=== PATIENT | female | born 1985 | race Caucasian/White ===

== ENCOUNTER 2020-05-18 21:32 | Emergency (ER) | payer BC ==
[~2020-05-18] VITALS: Ht 175 cm; Wt 136.0 kg
[~2020-05-18 21:32] MED LIST: HYDR-91 PO; IBP800T PO; PREN1TAB39 PO
[2020-05-18] MEDS ORDERED: OMEP40CA27 (21:44)
[2020-05-18] MEDS ORDERED: ESCI20TA56 (21:44)
--- NOTE | 2020-05-18 21:52 | ED General ---
General Chief Complaint: Head/Cervical Problems Stated Complaint: DIZZY;NAUSEA;HIGH BP;HEADACHE Source of Information: Patient History of Present Illness Date Seen by Provider: May 18, 2020 Time Seen by Provider: 21:38 Initial Comments PT ARRIVES VIA POV FROM HOME C/O SUDDEN ONSET OF DIZZINESS, HEADACHE, NAUSEA, AND ELEVATED BLOOD PRESSURE AT 1930 TONIGHT, WHILE SITTING AT COMPUTER AT HOME BP WAS 171/108, NEVER HAD HIGH BLOOD PRESSURE BEFORE, NORMALLY 120/80 NO PARESTHESIAS OR MOTOR DEFICITS VISION SLIGHTLY BLURRY DUE TO DIZZINESS NO EYE PAIN NO CHEST PAIN FEELS SLIGHTLY SHORT OF BREATH NO VOMITING OR ABDOMINAL PAIN NO HISTORY OF SIMILAR PT TESTED POSITIVE FOR COVID-19 04/21/20--HAD MILD SYMPTOMS, FULLY RECOVERED WITHOUT ANY TREATMENT. BP WAS NORMAL AT THAT VISIT. 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 PCP: DR. WELLS/[facility] Allergies and Home Medications Allergies Coded Allergies: No Known Drug Allergies (Unverified , 05/07/11) Patient Home Medication List Home Medication List Reviewed: Yes Review of Systems Review of Systems Constitutional: see HPI; No chills, No diaphoresis; dizziness; No fever, No malaise, No weakness EENTM: see HPI, blurred vision; No ear pain, No nose congestion, No throat pain Respiratory: see HPI, short of breath Cardiovascular: no symptoms reported; No chest pain, No edema, No palpitations, No syncope, No vascular heart diseas Gastrointestinal: see HPI; No abdominal pain, No diarrhea; nausea; No vomiting Genitourinary: no symptoms reported : No (NO PERIODS SINCE MIRENA IUD IN PLACE) Musculoskeletal: no symptoms reported Skin: no symptoms reported Psychiatric/Neurological: See HPI, Headache; Denies Numbness, Denies Paresthesia, Denies Seizure, Denies Tingling, Denies Tremors, Denies Weakness Hematologic/Lymphatic: No Symptoms Reported Immunological/Allergic: no symptoms reported Past Xrizwip-Honkpr-Ztdnme Hx Past Med/Social Hx: Reviewed and Corrections made Patient Social History Alcohol Use: Denies Use Drug of Choice: DENIES Smoking Status: Never a Smoker 2nd Hand Smoke Exposure: No Recent Hopitalizations: No Immunizations Up To Date Tetanus Booster (TDap): Unknown Date of Influenza Vaccine: Jan 16, 2011 Seasonal Allergies Seasonal Allergies: No Past Medical History Surgeries: Yes (LEFT KNEE X 2; RIGHT KNEE X 1) Orthopedic Respiratory: No Cardiac: No Neurological: No Reproductive Disorders: No Genitourinary: No Gastrointestinal: Yes Gastroesophageal Reflux Musculoskeletal: Yes (KNEE SCOPES) Endocrine: No HEENT: No Cancer: No Psychosocial: Yes Depression Integumentary: No Blood Disorders: No Physical Exam Vital Signs Vital Signs - First Documented 05/18/20 21:37 Temp 36.8 Pulse 90 Resp 18 B/P (MAP) 182/109 (133) Pulse Ox 97 O2 Delivery Room Air Capillary Refill : Height, Weight, BMI Height: '" Weight: lbs. oz. kg; BMI Method: General Appearance: No Apparent Distress, WD/WN, Obese HEENT: PERRL/EOMI, Normal ENT Inspection, Pharynx Normal, Other (TM'S MILDLY SCLEROTIC BILATERALLY) Neck: Full Range of Motion, Normal Inspection, Non Tender, Supple Respiratory: Normal Breath Sounds, No Accessory Muscle Use, No Respiratory Distress Cardiovascular: Regular Rate, Rhythm, No Edema, No JVD, No Murmur, Normal Peripheral Pulses Gastrointestinal: No Organomegaly, Non Tender, Soft Back: No CVA Tenderness Extremity: Normal Inspection Neurologic/Psychiatric: Alert, Oriented x3, No Motor/Sensory Deficits, Normal Mood/Affect, motion picture cameraman II-XII Norm as Tested Skin: Normal Color, Warm/Dry Progress/Results/Core Measures Suspected Sepsis SIRS Temperature: Pulse: Respiratory Rate: Laboratory Tests 05/18/20 21:50: White Blood Count 10.3 Blood Pressure / Mean: Laboratory Tests 05/18/20 21:50: Creatinine 0.82, INR Comment 0.9, Platelet Count 315, Total Bilirubin 0.2 Results/Orders Lab Results Laboratory Tests Test 05/18/20 21:50 Range/Units White Blood Count 10.3 4.3-11.0 10^3/uL Red Blood Count 4.33 3.80-5.11 10^6/uL Hemoglobin 12.7 11.5-16.0 g/dL Hematocrit 38 35-52 % Mean Corpuscular Volume 88 80-99 fL Mean Corpuscular Hemoglobin 29 25-34 pg Mean Corpuscular Hemoglobin Concent 33 32-36 g/dL Red Cell Distribution Width 13.6 10.0-14.5 % Platelet Count 315 130-400 10^3/uL Mean Platelet Volume 9.3 9.0-12.2 fL Immature Granulocyte % (Auto) 0 % Neutrophils (%) (Auto) 62 42-75 % Lymphocytes (%) (Auto) 29 12-44 % Monocytes (%) (Auto) 5 0-12 % Eosinophils (%) (Auto) 3 0-10 % Basophils (%) (Auto) 0 0-10 % Neutrophils # (Auto) 6.4 1.8-7.8 10^3/uL Lymphocytes # (Auto) 3.0 1.0-4.0 10^3/uL Monocytes # (Auto) 0.5 0.0-1.0 10^3/uL Eosinophils # (Auto) 0.3 0.0-0.3 10^3/uL Basophils # (Auto) 0.0 0.0-0.1 10^3/uL Immature Granulocyte # (Auto) 0.0 0.0-0.1 10^3/uL Erythrocyte Sedimentation Rate 29 H 0-20 MM/HR Prothrombin Time 12.9 12.2-14.7 SEC INR Comment 0.9 0.8-1.4 Activated Partial Thromboplast Time 33 24-35 SEC Urine Color YELLOW Urine Clarity SL CLOUDY Urine pH 7.5 5-9 Urine Specific Bethany 1.015 L 1.016-1.022 Urine Protein NEGATIVE NEGATIVE Urine Glucose (UA) NEGATIVE NEGATIVE Urine Ketones NEGATIVE NEGATIVE Urine Nitrite NEGATIVE NEGATIVE Urine Bilirubin NEGATIVE NEGATIVE Urine Urobilinogen 0.2 < = 1.0 MG/DL Urine Leukocyte Esterase NEGATIVE NEGATIVE Urine RBC (Auto) 1+ H NEGATIVE Urine RBC 5-10 H /HPF Urine WBC 2-5 /HPF Urine Squamous Epithelial Cells 5-10 /HPF Urine Renal Epithelial Cells RARE /HPF Urine Crystals NONE /LPF Urine Bacteria TRACE /HPF Urine Casts NONE /LPF Urine Mucus NEGATIVE /LPF Urine Culture Indicated NO Sodium Level 140 135-145 MMOL/L Potassium Level 4.0 3.6-5.0 MMOL/L Chloride Level 106 98-107 MMOL/L Carbon Dioxide Level 23 21-32 MMOL/L Anion Gap 11 5-14 MMOL/L Blood Urea Nitrogen 10 7-18 MG/DL Creatinine 0.82 0.60-1.30 MG/DL Estimat Glomerular Filtration Rate > 60 BUN/Creatinine Ratio 12 Glucose Level 114 H 70-105 MG/DL Calcium Level 9.2 8.5-10.1 MG/DL Corrected Calcium 9.1 8.5-10.1 MG/DL Magnesium Level 2.2 1.6-2.4 MG/DL Total Bilirubin 0.2 0.1-1.0 MG/DL Aspartate Amino Transf (AST/SGOT) 14 5-34 U/L Alanine Aminotransferase (ALT/SGPT) 12 0-55 U/L Alkaline Phosphatase 96 40-136 U/L Lactate Dehydrogenase 178 125-220 U/L C-Reactive Protein High Sensitivity 3.18 H 0.00-0.50 MG/DL Total Protein 7.2 6.4-8.2 GM/DL Albumin 4.1 3.2-4.5 GM/DL Amylase Level 32 25-125 U/L Lipase 21 8-78 U/L My Orders Orders - SHERMAN STEWART DO Ed Iv/Invasive Line Start (05/18/20 21:38) Urine Bedside (05/18/20 21:38) Monitor-Rhythm Ecg Trace Only (05/18/20 21:38) Amylase (05/18/20 21:38) Cbc With Automated Diff (05/18/20 21:38) Comprehensive Metabolic Panel (05/18/20 21:38) Hs C Reactive Protein (05/18/20 21:38) Lipase (05/18/20 21:38) Magnesium (05/18/20 21:38) Protime With Inr (05/18/20 21:38) Partial Thromboplastin Time (05/18/20 21:38) Ua Culture If Indicated (05/18/20 21:38) Erythrocyte Sedimentation Rate (05/18/20 21:38) LDH (05/18/20 21:38) Chest 1 View, Ap/Pa Only (05/18/20 21:38) Ct Head Wo-R/O Stroke (05/18/20 21:46) Scopolamine Patch (Transderm-Scop Patch) (05/18/20 22:00) Ondansetron Injection (Zofran Injectio (05/18/20 22:00) Hydralazine Injection (Apresoline Inject (05/18/20 22:45) Ketorolac Injection (Toradol Injection) (05/18/20 22:45) Medications Given in ED Current Medications Medications Dose Ordered Sig/Maryana Route Start Time Stop Time Status Last Admin Dose Admin Hydralazine HCl 10 mg ONCE ONCE IV 05/18/20 22:45 05/18/20 22:46 DC 05/18/20 22:47 10 MG Ketorolac Tromethamine 30 mg ONCE ONCE IVP 05/18/20 22:45 05/18/20 22:46 DC 05/18/20 22:47 30 MG Ondansetron HCl 4 mg ONCE ONCE IVP 05/18/20 22:00 05/18/20 22:01 DC 05/18/20 22:00 4 MG Scopolamine 1.5 mg ONCE ONCE TD 05/18/20 22:00 05/18/20 22:01 DC 05/18/20 22:00 1.5 MG Vital Signs/I&O 05/18/20 05/18/20 05/18/20 21:37 22:47 23:33 Temp 36.8 36.8 36.3 Pulse 90 97 Resp 18 21 B/P (MAP) 182/109 (133) 153/86 (133) Pulse Ox 97 98 O2 Delivery Room Air Room Air Capillary Refill : Progress Note : Progress Note GIVEN SCOPOLAMINE AND ZOFRAN FOR NAUSEA AND DIZZINESS GIVEN HYDRALAZINE FOR BLOOD PRESSURE GIVEN TORADOL FOR PAIN BP DOWN TO 153/86 AT DISMISSAL PT IS FEELING MUCH BETTER Diagnostic Imaging Comments CXR--NO ACUTE PROCESS CT HEAD--NO ACUTE PROCESS, PER [facility] VIA FAX AT 2252 Reviewed: Reviewed by Me Departure Impression Primary Impression: Hypertension Disposition: HOME, SELF-CARE Condition: Improved Departure-Patient Inst. Referrals: LEXIS WELLS MD (PCP/Family) Primary Care Physician Patient Instructions: High Blood Pressure (DC), DASH Diet Add. Discharge Instructions: HOME, REST DASH DIET FOLLOW UP WITH DR. WELLS TOMORROW FOR FURTHER CARE, RETURN TO ER IF PROBLEMS All discharge instructions reviewed with patient and/or family. Voiced understanding. SHERMAN STEWART DO May 18, 2020 21:52
[2020-05-18] MEDS ORDERED: SCOPOLAMINE 1.5 MG (TRANSDERM-SCOP) PATCH TD ONE (22:00)
[2020-05-18] MEDS ORDERED: ONDANSETRON 4 MG/2 ML (SDV) Z0FRAN IVP ONE (22:00)
[2020-05-18 22:07] LABS: BASOPHILS % (AUTO) 0 % (0-10); EOSINOPHILS # (AUTO) 0.3 10^3/uL (0.0-0.3); EOSINOPHILS % (AUTO) 3 % (0-10); HEMATOCRIT 38 % (35-52); HEMOGLOBIN 12.7 g/dL (11.5-16.0); LYMPHOCYTES % (AUTO) 29 % (12-44); MEAN CORPUSCULAR HEMOGLOBIN 29 pg (25-34); MEAN CORPUSCULAR HGB CONC 33 g/dL (32-36); MEAN CORPUSCULAR VOLUME 88 fL (80-99); MEAN PLATELET VOLUME 9.3 fL (9.0-12.2); MONOCYTES # (AUTO) 0.5 10^3/uL (0.0-1.0); MONOCYTES % (AUTO) 5 % (0-12); NEUTROPHILS # (AUTO) 6.4 10^3/uL (1.8-7.8); NEUTROPHILS % (AUTO) 62 % (42-75); PLATELET COUNT 315 10^3/uL (130-400); WHITE BLOOD COUNT 10.3 10^3/uL (4.3-11.0)
[2020-05-18 22:08] LABS: BILIRUBIN,URINE NEGATIVE (NEGATIVE); CLARITY,URINE SL CLOUDY; COLOR,URINE YELLOW; GLUCOSE, URINE (UA) NEGATIVE (NEGATIVE); KETONES,URINE NEGATIVE (NEGATIVE); LEUKOCYTE ESTERASE ,URINE NEGATIVE (NEGATIVE); NITRITE,URINE NEGATIVE (NEGATIVE); PH,URINE 7.5 (5-9); PROTEIN,URINE NEGATIVE (NEGATIVE)
[2020-05-18 22:15] LABS: ALBUMIN 4.1 GM/DL (3.2-4.5); CHLORIDE 106 MMOL/L (98-107); SODIUM 140 MMOL/L (135-145)
[2020-05-18 22:16] LABS: INR 0.9 (0.8-1.4); PROTHROMBIN TIME PATIENT 12.9 SEC (12.2-14.7)
[2020-05-18 22:17] LABS: CALCIUM 9.2 MG/DL (8.5-10.1)
[2020-05-18 22:18] LABS: GLUCOSE 114 MG/DL (70-105); TOTAL PROTEIN 7.2 GM/DL (6.4-8.2)
[2020-05-18 22:19] LABS: AMYLASE 32 U/L (25-125); BACTERIA,URINE TRACE /HPF; CARBON DIOXIDE 23 MMOL/L (21-32); RENAL EPITHELIAL CELLS,URINE RARE /HPF
[2020-05-18 22:20] LABS: BILIRUBIN,TOTAL 0.2 MG/DL (0.1-1.0); ERYTHROCYTE SEDIMENTATION RATE 29 MM/HR (0-20)
[2020-05-18 22:21] LABS: ALKALINE PHOSPHATASE 96 U/L (40-136)
[2020-05-18 22:22] LABS: CREATININE SERUM 0.82 MG/DL (0.60-1.30); GFR ESTIMATED > 60
[2020-05-18 22:23] LABS: BUN/CREATININE RATIO 12
[2020-05-18 22:24] LABS: ALANINE AMINOTRANSFERASE 12 U/L (0-55)
[2020-05-18 22:26] LABS: MAGNESIUM 2.2 MG/DL (1.6-2.4)
[2020-05-18 22:28] LABS: LIPASE 21 U/L (8-78)
[2020-05-18] MEDS ORDERED: KETOROLAC 30 MG/ML VIAL IVP ONE (22:45)
[2020-05-18] MEDS ORDERED: hydrALAZINE (APESOLINE) 20 MG/ML VIAL IV ONE (22:45)
[2020-05-18 23:33] VITALS: BP 153/86
--- NOTE | 2020-05-19 06:24 | Diagnostic Imaging Report ---
PROCEDURE: CT head wo r/o stroke. TECHNIQUE: Multiple contiguous axial images were obtained through the brain without the use of intravenous contrast. Auto Exposure Controls were utilized during the CT exam to meet ALARA standards for radiation dose reduction. INDICATION: Headache and dizziness. No prior studies are available for comparison. Ventricles and sulci are within normal limits. No sulcal effacement or midline shift is identified. No acute intra-axial or extra-axial hemorrhage is detected. Cisterns are patent. Visualized paranasal sinuses are clear. IMPRESSION: No acute intracranial process is detected. Dictated by: Dictated on workstation # [id number]
--- NOTE | 2020-05-19 06:47 | Diagnostic Imaging Report ---
Indication: Headache and dizziness. Time of exam: 10:11 PM No prior studies are available for comparison. The heart size is normal. The pulmonary vascularity is unremarkable. The lungs are clear. No infiltrate, effusion or pneumothorax is detected. Impression: No acute cardiopulmonary process is detected. Dictated by: Dictated on workstation # [id number]
== END 2020-05-18 23:35 | disposition home or self-care (01) ==
LOC: EDUNIT# 21:32 → ER 21:35
DX: I10 Essential (primary) hypertension (principal); E66.9 Obesity, unspecified
CPT/HCPCS: 36415; 70450; 71045; 80053; 81000; 82150; 83615; 83690; 83735; 84703; 85025; 85610; 85652; 85730; 86141; 93041